=== PATIENT | female | born 1985 ===

== ENCOUNTER 2024-04-27 05:41 | Day surgery (SDC) | payer OTHER ==
[2024-04-21 13:36] VITALS: BP 140/90
[~2024-04-27] VITALS: Ht 157.5 cm; Wt 57.2 kg
[~2024-04-27 05:41] MED LIST: NIFE60TA3 PO; PROPRANOLOL HCL10 MG PO
[2024-04-27] MEDS ORDERED: DEXAMETHASONE SODIUM PHOSP/PF 10 MG/ML VIAL ONE (11:20)
[2024-04-27] MEDS ORDERED: MORPHINE SULFATE 4 MG/ML VIAL IV ONE (13:25)
[2024-04-27] MEDS ORDERED: GENTAMICIN SULFATE 40 MG/ML VIAL ONE (14:02)
== END 2024-04-27 16:10 | disposition home or self-care (01) ==
LOC: CIR.AMB 05:41 → O/R 05:41 → SURH 05:41 → EDSTATUS 10:45 → SURH 10:45 → O/R 13:29 → SURH 13:52 → O/R 13:52 → CIR.AMB 16:10
PROVIDERS: ATTEND Surgery
DX: C73 Malignant neoplasm of thyroid gland (principal); I10 Essential (primary) hypertension; E03.8 Other specified hypothyroidism

== ENCOUNTER 2024-07-06 07:16 | Day surgery (SDC) | payer OTHER ==
[2024-07-06] MEDS ORDERED: DEXAMETHASONE SODIUM PHOSPHATE 4 MG/ML VIAL ONE (15:51)
[2024-07-06] MEDS ORDERED: MORPHINE SULFATE 4 MG/ML VIAL IV ONE ×2 (17:50→18:20)
[2024-07-06] MEDS ORDERED: hydrALAZINE HCL 20 MG VIAL ONE (18:42)
== END 2024-07-06 20:25 | disposition home or self-care (01) ==
LOC: SURH 07:16 → O/R 07:16 → CIR.AMB 07:16 → SURH 09:45 → EDSTATUS 09:45 → SURH 18:45 → O/R 20:25 → CIR.AMB 20:25
PROVIDERS: ATTEND Surgery
DX: C73 Malignant neoplasm of thyroid gland (principal)

== ENCOUNTER 2024-07-08 04:15 | Inpatient (IN) | payer OTHER ==
[~2024-07-08] VITALS: Ht 157.5 cm; Wt 54.9 kg
[2024-07-08] MEDS ORDERED: ACETAMINOPHEN 500 MG GEL..CAP PO STA (05:15)
[2024-07-08] MEDS ORDERED: LABETALOL HCL 100 MG/20 ML ML IV PUSH STA (05:15)
[2024-07-08] MEDS ORDERED: ACETAMINOPHEN 500 MG GEL..CAP PO ONE (05:23)
[2024-07-08] MEDS ORDERED: LABETALOL HCL 100 MG/20 ML ML ONE (05:23)
[2024-07-08 05:35] LABS: HEMATOCRIT 39.7 % (36.0-45.00); HEMOGLOBIN 13.3 g/dL (12.0-15.00); MEAN CELL VOLUME 88.4 fL (80.00-100.00); MEAN CORPUSCULAR HEMOGLOBIN 29.7 pg (27.00-32.0); MEAN CORPUSCULAR HGB CONC 33.6 g/dl (32.0-36.0); PLATELET COUNT 252 K/uL (150-450); RED BLOOD COUNT 4.49 M/uL (4.00-6.00); RED CELL DISTRIBUTION WIDTH 13.7 % (11.5-14.5)
[2024-07-08 06:24] LABS: ALBUMIN 4.1 gm/dL (3.4-5.0); BILIRUBIN TOTAL 0.62 mg/dL (0.3-1.2); CALCIUM 9.3 mg/dL (8.5-10.1); CREATININE SERUM 0.66 mg/dL (0.55-1.02); GFR 100.23; GLOBULINA 3.4 G/DL (2.4-3.5); POTASSIUM 3.35 mEq/L (3.5-5.1); TOTAL PROTEIN 7.5 gm/dL (6.4-8.2)
[2024-07-08 06:25] LABS: TSH 5.55 uIU/mL (0.358-3.74)
[2024-07-08] MEDS ORDERED: NIFEDIPINE 10 MG CAPSULE PO STA (06:36)
[2024-07-08 07:02] LABS: URINE APPEARANCE Clear; URINE BILIRRUBIN Negative (NEGATIVE); URINE BLOOD Negative; URINE COLOR Yellow; URINE GLUCOSE Negative (NEGATIVE); URINE KETONE Trace (NEGATIVE); URINE LEUKOCYTE Negative; URINE NITRATE Negative; URINE PROTEIN Negative (NEGATIVE); URINE UROBILINOGEN 0.2 E.U./dl
[2024-07-08 07:04] LABS: URINE BACTERIA 63.5 uL (0.0-1933); URINE EPITHELIAL CELLS 3.1 uL (0.0-38.8)
[2024-07-08] MEDS ORDERED: NIFEDIPINE 10 MG CAPSULE PO ONE (07:04)
[2024-07-08 07:33] LABS: URINE RBC 0.8 uL (0.0-20.8); URINE WBC 0.9 uL (0.0-23.2)
[2024-07-08] MEDS ORDERED: ONDANSETRON HCL 2 MG/ML VIAL IV PRN (09:45)
[2024-07-08] MEDS ORDERED: ENALAPRILAT DIHYDRATE 1.25 MG/ML VIAL IV PRN (09:45)
[2024-07-08 10:02] VITALS: BP 122/88; O2SAT 98
[2024-07-08 15:15] VITALS: BP 146/90; O2SAT 98
[2024-07-08] MEDS ORDERED: ENALAPRILAT DIHYDRATE 1.25 MG/ML VIAL IV ONE (15:28)
[2024-07-08] MEDS ORDERED: POTASSIUM CHLORIDE IN WATER 100 ML IV ONE (15:45)
[2024-07-08] MEDS ORDERED: POTASSIUM CHLORIDE IN WATER 40 MEQ/100 ML PIGGYBAG IV ONE (15:49)
[2024-07-08] MEDS ORDERED: ACETAMINOPHEN 500 MG GEL..CAP PO SCH (17:00)
[2024-07-08 19:24] VITALS: BP 150/99
[2024-07-08] MEDS ORDERED: LABETALOL HCL 200 MG TABLET PO SCH (21:30)
[2024-07-08] MEDS ORDERED: LABETALOL HCL 200 MG TABLET PO ONE (21:56)
[2024-07-09 02:53] VITALS: BP 125/88; O2SAT 95
[2024-07-09] MEDS ORDERED: LEVOTHYROXINE SODIUM 88 MCG TABLET PO SCH (06:00)
[2024-07-09 08:20] VITALS: BP 138/90; O2SAT 95
[2024-07-09] MEDS ORDERED: NIFEDIPINE 30 MG TAB.SA.OSM PO SCH (09:00)
[2024-07-09 17:06] VITALS: BP 100/66; O2SAT 96
[2024-07-09 22:45] VITALS: BP 131/93
[2024-07-10 02:22] VITALS: BP 117/80; O2SAT 97
[2024-07-10 08:50] VITALS: BP 133/65; O2SAT 94
== END 2024-07-10 13:27 | disposition home or self-care (01) | DRG 305 ==
LOC: ER 04:15 → SEC-K 10:08 → MEDJ 15:23
PROVIDERS: General Practice; ADMIT Internal Medicine; ATTEND Internal Medicine
PROC: B24BZZZ Ultrasonography of Heart with Aorta (ICD-10-PCS; 2024-07-08)
PROC: 4A12X4Z Monitoring of Cardiac Electrical Activity, External Approach (ICD-10-PCS; principal; 2024-07-09)
DX: I16.9 Hypertensive crisis, unspecified (principal); I10 Essential (primary) hypertension